=== PATIENT | male | born 1980 | race African-American/Black ===

== ENCOUNTER 2017-12-29 18:49 | Emergency (ER) | payer MEDICAID ==
[2017-12-29] MEDS: ACETAMINOPHEN 325 MG TAB PO (19:19)
== END 2017-12-29 20:21 | disposition home or self-care (01) ==
LOC: FTE 18:49
DX: S70.11XA Contusion of right thigh, initial encounter (principal); Y08.02XA Assault by strike by baseball bat, initial encounter
CPT/HCPCS: 70450; 73550; 99284-25